=== PATIENT | female | born 1990 | race Native Hawaiian/Other Pacific Islander ===

== ENCOUNTER 2020-06-25 11:12 | Outpatient (CLI) | payer OTHER | END 2020-06-25 11:13 | disposition critical access hospital (66) | LOC: EMS 11:12 | PROVIDERS: ATTEND Surgery | DX: O99.89 Other specified diseases and conditions complicating pregnancy, childbirth and the puerperium (principal); M54.2 Cervicalgia; M54.9 Dorsalgia, unspecified | CPT/HCPCS: A0425; A0427 ==

== ENCOUNTER 2020-06-25 11:58 | Outpatient (CLI) | payer OTHER ==
[2020-06-25 20:08] VITALS: BP 127/62
--- NOTE | 2020-07-16 12:08 | PROVIDER PROGRESS NOTE ---
- HPI Chief Complaint: Other (Patient is a 30 yo at 29+0 wga followed by [facility] who presented w/extreme neck and back pain via EMS. Symptoms not related to . + FM, no LOF, VB, CTX) Current : Current EDU 09/10/20 Gestation 29 Weeks and 0 Days 1 Para 0 Vital Signs Temperature 98.4 F 06/25/20 11:58 Heart Rate 73 06/25/20 11:58 Respiratory Rate 24 06/25/20 11:58 Blood Pressure 127/62 06/25/20 11:58 O2 Saturation 97 06/25/20 11:58 Temperature 98.4 F 06/25/20 11:58 Heart Rate 73 06/25/20 11:58 Respiratory Rate 24 06/25/20 11:58 Blood Pressure 127/62 06/25/20 11:58 O2 Saturation 97 06/25/20 11:58 - Procedures OB Procedure Performed: NST Diagnosis/Indication for NST: Other (Extreme neck/back pain) NST Procedure: EFM 130 mod faby 10x10 accels no decels TOCO: quiet Service Date of procedure: 06/25/20 Procedure Details: Appropriate for gestational age/Cat I tracing Sent to ED for full evaluation of neck/back pain Cleared from OB standpoint and transferred to ED
== END 2020-06-25 12:06 | disposition still patient (30) ==
LOC: WFO 11:58 → FBP 11:59 → WFO 12:06 → FBP 13:15
PROVIDERS: ATTEND Obstetrics & Gynecology
DX: O99.89 Other specified diseases and conditions complicating pregnancy, childbirth and the puerperium (principal); M54.9 Dorsalgia, unspecified; M54.2 Cervicalgia; Z3A.29 29 weeks gestation of pregnancy
CPT/HCPCS: 99212

== ENCOUNTER 2020-06-25 12:21 | Emergency (ER) | payer OTHER ==
[2020-06-25] MEDS ORDERED: LORazepam 2 MG/ML VIAL IVP STA (12:35)
--- NOTE | 2020-06-25 12:37 | ED Physician Documentation ---
PD HPI NECK PAIN - Stated complaint Stated Complaint: BACK PAIN - Chief complaint Chief Complaint: Back Pain - History obtained from History obtained from: Patient - Additional information Additional information: She is 30 weeks , she woke this morning at about 530 with neck pain that subsequently worsened over the next couple of hours and she could not sleep anymore. Pain starts at the bottom of the neck and radiates up and down. It is bilateral. She is never had this before. It is profoundly painful to move her neck both in rotation and in flexion and extension. She denies weakness, numbness, tingling in the arms or legs. No saddle anesthesia. She was seen prior to arrival in OB without worry for the . No fevers or chills. No shortness of breath or chest pain. Review of Systems Constitutional: denies: Fever, Chills Cardiac: denies: Chest pain / pressure, Palpitations Respiratory: denies: Dyspnea, Cough GI: denies: Abdominal Pain, Vomiting, Diarrhea PD PAST MEDICAL HISTORY - Present Medications Home Medications: Ambulatory Orders Medication Instructions Recorded Confirmed Cyclobenzaprine [Flexeril] 10 mg PO TID PRN #20 tablet 06/25/20 Hydrocodone/Acetaminophen 1 - 2 tab PO Q6H PRN #15 tablet 06/25/20 [Hydrocodone-Acetamin 5-325 mg] - Allergies Allergies/Adverse Reactions: Allergies Allergy/AdvReac Type Severity Reaction Status Date / Time No Known Drug Allergies Allergy Verified 06/25/20 12:38 PD ED PE NORMAL - Vitals Vital signs reviewed: Yes - General General: Alert and oriented X 3, Other (She is profoundly anxious and tearful) - Neck Neck: Other (see mdmd txt box small) - Cardiac Cardiac: RRR, No murmur - Respiratory Respiratory: No respiratory distress, Clear bilaterally - Abdomen Abdomen: Non tender - Back Back: No CVA TTP - Derm Derm: No rash - Extremities Extremities: No edema, Other (The patient has equal and normal Achilles and patellar reflexes bilaterally. Normal sensation in all areas of the legs. Patient denies saddle anesthesia. Normal strength in flexion-extension at the ankles, knees, and flexion of the hips.) - Neuro Neuro: Alert and oriented X 3, calliope player 2-12 intact, No motor deficit, No sensory deficit, Normal speech Results - Vitals Vitals: Vital Signs - 24 hr 06/25/20 06/25/20 12:22 12:25 Temperature 36.8 C 37.0 C Heart Rate 72 75 Respiratory 18 24 Rate Blood Pressure 129/87 H 127/89 H O2 Saturation 100 100 Oxygen O2 Source Room air - Labs Labs: Laboratory Tests 06/25/20 06/25/20 12:40 12:40 WBC 8.4 RBC 3.84 L Hgb 11.6 L Hct 34.6 L MCV 90.1 MCH 30.2 MCHC 33.5 RDW 13.3 Plt Count 249 MPV 9.2 Neut # (Auto) 6.1 Lymph # (Auto) 1.6 [place] # (Auto) 0.4 Eos # (Auto) 0.2 Baso # (Auto) 0.0 Absolute Nucleated RBC 0.00 Nucleated RBC % 0.0 Sodium 133 L Potassium 3.7 Chloride 104 Carbon Dioxide 22 Anion Gap 7.0 BUN 6 Creatinine 0.5 Estimated GFR (MDRD) 145 Glucose 102 H Calcium 9.2 Magnesium 1.9 Total Bilirubin 0.2 AST 22 ALT 27 Alkaline Phosphatase 63 Total Protein 7.0 Albumin 3.6 Globulin 3.4 Albumin/Globulin Ratio 1.1 Lipase 25 PD MEDICAL DECISION MAKING - ED course ED course: She cannot move her neck at all, not in rotation nor in flexion or extension. She has tenderness out of proportion to anything everywhere between the occiput down to the parathoracic muscles. She has normal flexion and extension at both wrists, interosseous strength., Thumb extension, and wafer substrate tester strength on both sides. 30-year-old woman presents with severe neck and back pain that is reproducible. Alternative diagnoses other than muscular pain were considered, but seem very unlikely given the constellation of symptoms and the exam. She is feeling better (but not 100%) after divided doses of medications here and requested discharge. Departure - Departure Disposition: 01 Home, Self Care Clinical Impression: Neck muscle spasm, 30 weeks gestation of Condition: Good Record reviewed to determine appropriate education?: Yes Instructions: ED Spasm Neck No Injury Prescriptions: Cyclobenzaprine [Flexeril] 10 mg PO TID PRN #20 tablet PRN Reason: Spasms Hydrocodone/Acetaminophen [Hydrocodone-Acetamin 5-325 mg] 1 - 2 tab PO Q6H PRN #15 tablet PRN Reason: Pain Comments: Avoid nonsteroidal anti-inflammatory drugs such as ibuprofen, Aleve. You can take Tylenol but note that the painkillers also have Tylenol in them so do not take too much. Return for new or worsening symptoms. Follow-up with your OB per routine. Forms: Activity restrictions
[2020-06-25 12:46] LABS: BASOPHILS % (AUTO) 0.4 %; EOSINOPHILS # (AUTO) 0.2 10^3/uL (0.0-0.7); EOSINOPHILS % (AUTO) 2.9 %; HGB - HEMOGLOBIN 11.6 g/dL (12.0-16.0); LYMPHOCYTES # (AUTO) 1.6 10^3/uL (1.5-3.5); LYMPHOCYTES % (AUTO) 18.6 %; MEAN CORPUSCULAR HEMOGLOBIN 30.2 pg (27.0-31.0); MEAN CORPUSCULAR HGB CONC 33.5 g/dL (32.0-36.0); MEAN CORPUSCULAR VOLUME 90.1 fL (81.0-99.0); MEAN PLATELET VOLUME 9.2 fL (7.9-10.8); MONOCYTES # (AUTO) 0.4 10^3/uL (0.0-1.0); MONOCYTES % (AUTO) 4.7 %; NEUTROPHILS # (AUTO) 6.1 10^3/uL (1.5-6.6); NEUTROPHILS % (AUTO) 72.8 %; PLT - PLATELET COUNT 249 10^3/uL (130-450); RED BLOOD COUNT 3.84 10^6/uL (4.20-5.40); RED CELL DISTRIBUTION WIDTH 13.3 % (12.0-15.0); WHITE BLOOD COUNT 8.4 x10^3/uL (4.8-10.8)
[2020-06-25 12:59] LABS: ALBUMIN 3.6 g/dL (3.2-5.5); ALBUMIN/GLOBULIN RATIO 1.1 (1.0-2.2); BILIRUBIN,TOTAL 0.2 mg/dL (0.2-1.0); CALCIUM 9.2 mg/dL (8.5-10.3); CREATININE 0.5 mg/dL (0.4-1.0); MAGNESIUM 1.9 mg/dL (1.7-2.8)
[2020-06-25] MEDS ORDERED: HYDROmorphone 1 MG/ML CARPUJECT IVP STA (13:11)
[2020-06-25] MEDS ORDERED: ACETAMINOPHEN 500 MG TABLET PO STA (13:55)
[2020-06-25] MEDS ORDERED: CYCLOBENZAPRINE 10 MG TABLET PO STA (13:56)
[2020-06-25 14:15] VITALS: BP 124/88
== END 2020-06-25 14:15 | disposition home or self-care (01) ==
LOC: ED 12:21
DX: O99.89 Other specified diseases and conditions complicating pregnancy, childbirth and the puerperium (principal); M62.838 Other muscle spasm; Z3A.30 30 weeks gestation of pregnancy; M54.2 Cervicalgia; Z3A.29 29 weeks gestation of pregnancy
CPT/HCPCS: 36415; 80053; 83690; 83735; 85025; 96374; 96375; 99283; 99284; A9270; J1170; J2060; 99212

== ENCOUNTER 2024-05-04 18:14 | Emergency (ER) | payer OTHER ==
[2024-05-04 18:37] VITALS: BP 114/76; O2SAT 99
--- NOTE | 2024-05-04 20:07 | ED Physician Documentation ---
PD HPI BACK PAIN - Stated complaint Stated Complaint: BACK PX - Chief complaint Chief Complaint: Back Pain - History obtained from History obtained from: Patient - History of Present Illness Timing - onset: Today Timing - duration: Days (1) Timing - details: Gradual onset Pain level max: 8 Pain level now: 8 Location: Upper, Mid, Lower, Right Quality: Pain, Spasm, Similar to prior episodes Associated symptoms: No: Fever, Weakness, Numbness, Incontinent of urine, Unable to urinate, Hematuria, Incontinent of stool Improves with: Rest Worsened by: Movement Contributing factors: No: Lifting, Twisting, Trauma, Anticoagulated, Cancer, IVDA, Out of meds Recently seen: Not recently seen - Additional information Additional information: 34-year-old female presents to the emergency department with right-sided back pain. Started earlier this morning/afternoon and is gradually worsened th roughout the day. Took Tylenol without relief. No loss of bowel or bladder control. No fever. No chills. No trauma. 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 - Present Medications Home Medications: Ambulatory Orders Medication Instructions Recorded Confirmed Cyclobenzaprine [Flexeril] 10 mg PO TID PRN #20 tablet 06/25/20 Hydrocodone/Acetaminophen 1 - 2 tab PO Q6H PRN #15 tablet 06/25/20 [Hydrocodone-Acetamin 5-325 mg] methocarbamoL [Robaxin] 500 mg PO Q6H PRN #20 tablet 05/04/24 oxyCODONE [Roxicodone] 5 - 10 mg PO Q6H PRN #14 tablet 05/04/24 MDD 6 - Allergies Allergies/Adverse Reactions: Allergies Allergy/AdvReac Type Severity Reaction Status Date / Time No Known Drug Allergies Allergy Verified 05/04/24 18:29 - Social History Does the pt smoke?: No Smoking Status: Never smoker Does the pt have substance abuse?: No - Immunizations Immunizations are current?: Yes PD ED PE NORMAL - Vitals Vital signs reviewed: Yes - General General: Alert and oriented X 3, No acute distress - HEENT HEENT: Atraumatic, PERRL, Moist mucous membranes - Neck Neck: Supple, no meningeal sign, No bony TTP - Cardiac Cardiac: RRR, No murmur - Abdomen Abdomen: Normal bowel sounds, Soft, Non tender, Non distended - Back Back: No spinal TTP (No midline tenderness over the thoracic or lumbar spine. She does have paraspinal spasm bilaterally. Right greater than left) - Derm Derm: Warm and dry - Extremities Extremities: Normal ROM s pain, No edema - Neuro Neuro: Alert and oriented X 3, tool setter apprentice 2-12 intact, No motor deficit, No sensory deficit, Normal speech, Other (Normal bilateral lower extremity patellar and ankle jerk reflexes. Normal great toe extension bilaterally. no saddle anesthesia) - Psych Psych: Normal mood, Normal affect Results - Vitals Vitals: Vital Signs - 24 hr 05/04/24 18:26 Temperature 36.1 C L Heart Rate 89 Respiratory 16 Rate Blood Pressure 114/76 O2 Saturation 99 Oxygen O2 Source Room air PD Medical Decision Making - ED course Complexity details: re-evaluated patient, considered differential (No cauda equina, no spinal epidural abscess, no fracture, no aortic dissection or evide nce of aneursym rupture), d/w patient ED course: Patient with what appears to be muscular spasm of her back. This has happened to her in the past. No evidence of cauda equina, epidural abscess. No focal neurological deficits. She was given IM Dilaudid, Toradol and oral Valium and Flexeril. She states the pain is mostly gone but is still having some spasm. Will place on pain medications and muscle relaxants for home. No indication for imaging at this time. [place] No IV drug use. No fevers. Patient counseled regarding signs and symptoms for which I believe and urgent re-evaluation would be necessary. Patient with good understanding of and agreement to plan and is comfortable going home at this time This document was made in part using voice recognition software. While efforts are made to proofread this document, sound alike and grammatical errors may occur. Departure - Departure Disposition: 01 Home, Self Care Clinical Impression: Back spasm Condition: Good Instructions: ED Spasm Back No Trauma Follow-Up: your,doctor in 3-5 days [Other] Prescriptions: methocarbamoL [Robaxin] 500 mg PO Q6H PRN #20 tablet PRN Reason: muscle spasm oxyCODONE [Roxicodone] 5 - 10 mg PO Q6H PRN #14 tablet MDD 6 PRN Reason: pain Comments: Your prescription was sent to [facility] in [place]. Please use the medications as prescribed and continue to gently stretch your neck and back. This will take a day or 2 to improve. [place]. Return if you worsen. I am prescribing a short course of narcotic pain medication for you. These are potentially dangerous and addictive medications that should be used carefully. These medications may constipate you. Take an [id number] stool softener (docusate) twice daily with plenty of water while taking these medications. If you go 24 hours without a bowel movement, take [id number] miralax, per package instructions. Do not drink or drive while taking these medications. If you received narcotic or sedating medications while in the emergency department, do not drive for 24 hours. Store this medication in a safe, secure place and out of reach of children. It is a violation of federal law to give or sell this medication to another person or to use in a manner other than prescribed. The ED will not refill narcotic prescriptions, including prescriptions lost or stolen. To dispose of unwanted medications: 1. [facility] at [address] in [place] has a medication drop box. They accept prescription medications (in pill form) Thursday through Thursday 9:00 a.m. to 5:00 p.m. 2. [facility] accepts prescription medications (in pill form only) for disposal year round. Call for more information. 3. Contact the [facility] for the next [facility] sponsored prescription drug collection event. , [phone], or [phone]; Forms: PCP List, Activity restrictions Discharge Date/Time: 05/04/24 21:45
[2024-05-04] MEDS: HYDROmorphone 1 MG/ML CARPUJECT IM STA (20:15)
[2024-05-04] MEDS: KETOROLAC 60 MG/2 ML VIAL IM STA (20:17)
[2024-05-04] MEDS: CYCLOBENZAPRINE 10 MG TABLET PO STA (20:19)
[2024-05-04] MEDS: diazePAM 5 MG TABLET PO STA (21:43)
== END 2024-05-04 21:45 | disposition home or self-care (01) ==
LOC: ED 18:14
DX: M62.830 Muscle spasm of back (principal); Z79.899 Other long term (current) drug therapy
CPT/HCPCS: 96372; 99283; A9270; J1170

== ENCOUNTER 2024-07-10 19:05 | Emergency (ER) | payer OTHER ==
--- NOTE | 2024-07-10 19:23 | ED Physician Documentation ---
PD HPI BACK PAIN - Stated complaint Stated Complaint: BACK PX - Chief complaint Chief Complaint: Back Pain - Additional information Additional information: 34-year-old female presents emergency department for mid upper back pain. Patient has had history of chronic back pain as well as depression and anxiety she has been seen by chiropractor as well as her primary care provider. Patient says that she started noticing some back stiffness a couple days ago and has increased in severity she has had no incontinence of urine or stool no nausea or vomiting no recent fevers or chills no history of IV drug use no weakness no numbness between her legs she said that she is taking Tylenol ibuprofen with little to no relief. 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 - Present Medications Home Medications: Ambulatory Orders Medication Instructions Recorded Confirmed Cyclobenzaprine [Flexeril] 10 mg PO TID PRN #20 tablet 06/25/20 Hydrocodone/Acetaminophen 1 - 2 tab PO Q6H PRN #15 tablet 06/25/20 [Hydrocodone-Acetamin 5-325 mg] methocarbamoL [Robaxin] 500 mg PO Q6H PRN #20 tablet 05/04/24 oxyCODONE [Roxicodone] 5 - 10 mg PO Q6H PRN #14 tablet 05/04/24 MDD 6 Cyclobenzaprine [Flexeril] 10 mg PO TID PRN 6 Days #20 tablet 07/10/24 - Allergies Allergies/Adverse Reactions: Allergies Allergy/AdvReac Type Severity Reaction Status Date / Time No Known Drug Allergies Allergy Verified 07/10/24 19:10 - Social History Does the pt smoke?: No Smoking Status: Never smoker Does the pt drink ETOH?: No Does the pt have substance abuse?: No - Immunizations Immunizations are current?: Yes - POLST Patient has POLST: No PD ED PE NORMAL - Vitals Vital signs reviewed: Yes - General General: Alert and oriented X 3, No acute distress, Well developed/nourished - Cardiac Cardiac: RRR - Respiratory Respiratory: No respiratory distress, Clear bilaterally - Back Back: No CVA TTP - Derm Derm: Normal color, Warm and dry, No rash - Extremities Extremities: No edema, No calf tenderness / cord - Neuro Neuro: Alert and oriented X 3, transportation dispatcher 2-12 intact, No motor deficit, No sensory deficit, Normal speech Eye Opening: Spontaneous Motor: Obeys Commands Verbal: Oriented GCS Score: 15 - Psych Psych: Normal mood, Normal affect - Free text exam Free text exam: Neck and back are without deformity, external skin changes, or signs of trauma. Curvature of the cervical, thoracic, and lumbar spine are within normal limits. Bony features of the shoulders and hips are of equal height bilaterally. Posture is upright, gait is smooth, steady, and within normal limits. No tenderness noted on palpation of the spinous processes. Spinous processes are midline. Cervical, thoracic, and lumbar paraspinal muscles are not tender and are without spasm. No discomfort is noted with flexion, extension, and swah-pd-[id number] rotation of the cervical spine, full range of motion is noted. Full range of motion including flexion, extension, and aray-hk-[id number] rotation of the thoracic and lumbar spine are noted and without discomfort. Straight leg raise test is negative bilaterally. Sensation to the upper and lower extremities is normal bilaterally. No clonus is noted. Brisket Puller strength is normal bilaterally. Dorsi/plantar flexion is normal bilaterally. Results - Vitals Vitals: Vital Signs - 24 hr 07/10/24 07/10/24 19:10 20:22 Temperature 36.5 C 36.3 C L Heart Rate 61 89 Respiratory 16 16 Rate Blood Pressure 125/86 H 122/68 O2 Saturation 100 98 Oxygen O2 Source Room air PD Medical Decision Making - ED course ED course: This patient presents with back pain most consistent with musculoskeletal spasm/strain. No back pain red flags on history or physical. Presentation not consistent with malignancy (lack of history of malignancy, lack of B symptoms), fracture (no trauma, no bony tenderness to palpation), transverse myelitis, (no sensory loss, no distal weakness), thoracic aortic dissection (equal peripheral pulses, no tachycardia, story does not fit), pneumonia (afebrile, no infectious symptoms), pulmonary embolism (Wells low risk), osteomyelitis or epidural abscess (no IVDU, vertebral tenderness). Given the clinical picture, no indication for imaging at this time. Patient's pain is significantly improved with Flexeril and Toradol. She is told to follow-up with her primary care alicia atwood who she has an appointment with first thing tomorrow morning and was given ER return precautions. Departure - Departure Disposition: 01 Home, Self Care Clinical Impression: Muscle spasm of back Instructions: ED Back Care Tips, ED Exercises Lumbar Muscles, ED Spasm Back No Trauma Prescriptions: Cyclobenzaprine [Flexeril] 10 mg PO TID PRN 6 Days #20 tablet PRN Reason: Spasms Comments: Thank you for trusting us with your care. We have given you a Toradol shot as well as a pill of Flexeril also known as a muscle relaxer here in the emergency department. I sent a prescription of Flexeril to your preferred pharmacy on file please follow-up with your primary care provider to discuss possible further outpatient more advanced imaging and a possible referral to a spinal doc for further evaluation of why you are having this chronic recurrent back pain. Please come back to the ER if you are having any incontinence of urine or stool fevers or chills or any other concerning emergent symptoms. Discharge Date/Time: 07/10/24 20:28
[2024-07-10] MEDS: CYCLOBENZAPRINE 10 MG TABLET PO STA (19:47)
[2024-07-10] MEDS: KETOROLAC 30 MG/ML VIAL IM STA (19:47)
[2024-07-10 20:25] VITALS: BP 122/68; O2SAT 98
== END 2024-07-10 20:28 | disposition home or self-care (01) ==
LOC: ED 19:05
DX: M62.830 Muscle spasm of back (principal)
CPT/HCPCS: 96372; 99283; A9270